=== PATIENT | female | born 2005 | race Hispanic/Latino ===

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

== ENCOUNTER 2024-02-17 22:18 | Emergency (ER) | payer OTHER ==
[2024-02-17] MEDS ORDERED: Bacitracin 1 PK ONE (22:41)
== END 2024-02-17 22:53 | disposition home or self-care (01) ==
LOC: CSHERS 22:18
DX: S81.811A Laceration without foreign body, right lower leg, initial encounter (principal); W25.XXXA Contact with sharp glass, initial encounter
CPT/HCPCS: 12001; 99282